=== PATIENT | female | born 1995 | race Caucasian/White ===

== ENCOUNTER → 2018-05-25 12:15 | Day surgery (SDC) | payer OTHER ==
[~2018-05-25 12:15] MED LIST: Acetaminophen TAB* 325 MG ONE; Acetaminophen TAB* 325 MG PO ONE; Buffered Lidocaine 1% SYRIN* 1 ML/SYRINGE INTRADERM ONE; DOXYcycline IV* 100 MG in NS 0.9% 250 ML* 250 ML IVPB ONE; Dexamethasone IV* 4 MG/ML 1 ML (4 MG) ONE; DiMENhydriNATE IV* 50 MG/ML VIAL IV PUSH PRN; Famotidine IV* 10 MG/ML 2 ML (20 mg) ONE; HYDROcodone/ACETAMIN 5-325 MG* 1 TAB PO PRN; Ketorolac INJ* 30 MG/ML 1 ML VIAL ONE; Lactated Ringers 1000 ML Bag* 1,000 ML IV SCH; Midazolam* 1 MG/ML 2 ML VIAL (2 MG) ONE; Naloxone* 0.4 MG/ML 1 ML VIAL IV PRN; OXYTOCIN* 10 UNITS/ML 1 ML VIAL ONE; Ondansetron INJ* 2 MG/ML VIAL IV PRN; Ondansetron INJ* 2 MG/ML VIAL ONE; PROCHLORPERAZINE INJ 5 MG/ML 2 ML VIAL IV PRN; Propofol* 10 MG/ML 20 ML BTL ONE; Silver Nitrate/Potassium Nitr* 1 EA STICK ONE; diPHENhydraMINE IV* 50 MG/ML 1 ml VIAL (BENADRYL) IV PRN; fentaNYL* 50 MCG/ML 2 ML VIAL (100 MCG VIAL) IV PRN; fentaNYL* 50 MCG/ML 2 ML VIAL (100 MCG VIAL) ONE
--- NOTE | 2018-05-25 15:33 | OP ---
DATE OF OPERATION: 05/25/18 - [facility] DATE OF : 89 SURGEON: Marty Galan MD DEAN OF BOYS: None. ANESTHESIA: General endotracheal tube. PRE-OP DIAGNOSIS: Incomplete . POST-OP DIAGNOSIS: Incomplete . OPERATIVE PROCEDURE: D and C. ESTIMATED BLOOD LOSS: 50 cc. SPECIMENS: Include products of conception. FINDINGS: On exam under anesthesia, the uterus was anteverted and 8 weeks' size. There were no adnexal masses. Cervix and vulva appeared normal. On curettage, a small amount of tissue was obtained using the polyp forceps. DESCRIPTION OF PROCEDURE: The patient identified, procedure identified as a D and C. The patient was taken to the operating room, prepped and draped in the usual fashion in dorsal lithotomy position under general anesthesia. Two single -tooth tenaculums were placed on the anterior lip of the cervix. The cervix was easily dilated up to a #29 Barrios dilator. The #8 suction curette was inserted and suction curettage performed. The sharp curette was inserted and sharp curettage was performed. A small amount of tissue was felt anteriorly and this was removed using the polyp forceps. The sharp curette was reinserted. Sharp curettage performed with a gritty sensation felt throughout the circumference. The suction curette was inserted one more time and no further tissue was obtained. Good hemostasis achieved with silver nitrate on the tenaculum sites. All sponge and instrument counts correct and the patient returned to recovery room in stable condition. [id number] #: [id number] MTDD
[2018-05-25 16:10] VITALS: BP 104/66
== END | disposition home or self-care (01) ==
LOC: OR 12:15
PROVIDERS: ATTEND Obstetrics & Gynecology
DX: O03.4 Incomplete spontaneous abortion without complication (principal); Z87.442 Personal history of urinary calculi
CPT/HCPCS: 88305; A9270-GY; J1100; J1885; J2250; J2405; J2590; J2704; J3010